=== PATIENT | male | born 1960 | race Caucasian/White ===

== ENCOUNTER 2023-11-19 08:05 | Outpatient (AMB) | payer OTHER, SELFPAY ==
--- NOTE | 2023-11-19 08:11 | AM.OFFWIN_ITS ---
Intake Vital Signs 11/19/23 08:23 Height 6 ft Weight 215 lb BMI 29.2 BP 142/80 H Blood Pressure Location Rt brachial Position Sitting Pulse 75 Pulse Source Pulse Oximeter Temp 98.4 F Temp Source Oral Pulse Oximetry (%) 98 Oxygen Delivery Method Room Air Intake Visit Reasons: EP ?Strep throat Intake Note: pt is here for c/p sore throat Allergies indomethacin Allergy (Intermediate, Verified 11/19/23 08:12) Palpitations Do you need a note to return to daycare/school/sports/work: No HPI HPI Comments History of Present Illness Details Patient presents to the walk-in today for sick visit Complaining of sore throat for last one-week Does watch his grandchildren, both have been sick with URIs Pain with swallowing Reports some mild bilateral eye itching. Denies any history of seasonal allergies. Endorses dry, nonproductive cough, sinus congestion that is worse in the morning and at night Tolerating p.o., denies nausea, vomiting Denies headaches, fevers, chest pain, syncope, dizziness, weakness or difficulty managing secretions Review of Systems Const All systems reviewed & are unremarkable except as noted in HPI and below Physical Exam Vital Signs: Last Vital Signs Temp 98.4 F 11/19/23 08:23 Pulse 75 11/19/23 08:23 BP 142/80 H 11/19/23 08:23 Pulse Ox 98 11/19/23 08:23 Oxygen Delivery Method Room Air 11/19/23 08:23 BMI result Body Mass Index 29.2 General: awake, alert, oriented. Answers questions appropriately. Fully engaged in examination. Skin: warm, dry, intact HEENT: TMs intact bilaterally, no redness. Posterior pharynx without exudate. Moist oral mucosa. Sclera without icterus or injection. Cardiac: External chest normal in appearance. Respiratory: +cough. LSCTAB. Abdomen: without gross distension. Neurological: Oriented to person, place, time and situation. Thought process intact. Psychiatric: Appropriate mood and affect. Good judgment and insight. Results AMB Rapid Strep AMB Rapid Strep Negative Last Edit by Demond Johnson CMA on 11/19/23 08 :47 Results Reviewed Results Reviewed: Rapid strep negative Assessment & Plan Assessment & Plan (1) URI (upper respiratory infection): Code(s): J06.9 - Acute upper respiratory infection, unspecified Plan URI, no abx warranted. Rapid strep negative Benzonatate 100mg po bid as needed Rest, drink plenty of fluids, tylenol or motrin as needed. Recommend taking OTC nasal decongestants and Claritin/Zyrtec. Follow up with pcp or in clinic for any new or worsening symptoms. Go to ER for shortness of breath, chest pain, palpitations, weakness, dizziness. Orders: Orders AMB Rapid Strep Screen Today Z13.9 - Encounter for screening, unspecified Medications: New benzonatate 100 mg PO BID PRN 20 caps 0RF cough Coding Level of Care Code Est Pt Level 3 (20474) Diagnoses URI (upper respiratory infection) J06.9
[2023-11-19 08:23] VITALS: BP 142/80; PULSE 75; TEMP 36.9; O2SAT 98; BMI 29.2
== END 2023-11-19 09:45 | disposition home or self-care (01) ==
PROVIDERS: PCP Internal Medicine; Visit Provider Registered Nurse Emergency
DX: J06.9 Acute upper respiratory infection, unspecified (principal); J02.9 Acute pharyngitis, unspecified
CPT/HCPCS: 87880; 99213